=== PATIENT | male | born 1975 | race Caucasian/White ===

== ENCOUNTER 2017-03-31 17:47 | Emergency (ER) | payer OTHER ==
[2017-03-31 17:59] VITALS: BP 110/73; PULSE 95; RESP 18; TEMP 98.7
--- NOTE | 2017-03-31 18:17 | ED ---
ENT HPI - General Chief complaint: ENT Stated complaint: left facial swelling Time Seen by Provider: 03/31/17 18:00 Source: patient Mode of arrival: ambulatory Limitations: no limitations - History of Present Illness Initial comments: 32-year-old male patient presents to emergency department today for complaints of left sided facial pain and nasal drainage. Patient states that symptoms started on Thursday. Patient states that the pain feels like a pressure, is there constantly, and seems to be worsening. Patient states that he is having thick yellow drainage from his nose that has a foul odor. Patient denies any fevers, but states he has had chills on and off throughout the day today. Denies any cough, or congestion. States he does have a mild sore throat. Patient denies any headaches, dizziness, weakness, chest pain, shortness of breath, nausea, vomiting, or other concerns. - Related Data Previous Rx's Medication Instructions Recorded Amoxicillin/Potassium Clav 1 tab PO Q12HR #20 tab 03/31/17 [Augmentin 875-125 Tablet] Allergies Allergy/AdvReac Type Severity Reaction Status Date / Time No Known Allergies Allergy Verified 03/31/17 17:58 Review of Systems ROS Statement: Those systems with pertinent positive or pertinent negative responses have been documented in the HPI. ROS Other: All systems not noted in ROS Statement are negative. Past Medical History Past Medical History: No Reported History History of Any Multi-Drug Resistant Organisms: MRSA Date of last positivie culture/infection: 2014 MDRO Source:: feet/groin Past Surgical History: No Surgical Hx Reported Past Psychological History: No Psychological Hx Reported Smoking Status: Current every day smoker Past Alcohol Use History: None Reported Past Drug Use History: None Reported General Exam Limitations: no limitations General appearance: alert, in no apparent distress Head exam: Present: atraumatic, normocephalic, normal inspection Eye exam: Present: normal appearance, PERRL, EOMI. Absent: scleral icterus, conjunctival injection, periorbital swelling ENT exam: Present: normal exam, normal oropharynx, TM's normal bilaterally, other (Bilateral maxillary tenderness) Neck exam: Present: normal inspection. Absent: tenderness, meningismus, lymphadenopathy Respiratory exam: Present: normal lung sounds bilaterally. Absent: respiratory distress, wheezes, rales, rhonchi, stridor Cardiovascular Exam: Present: regular rate, normal rhythm, normal heart sounds. Absent: systolic murmur, diastolic murmur, rubs, gallop, clicks GI/Abdominal exam: Present: soft, normal bowel sounds. Absent: distended, tenderness, guarding, rebound, rigid Extremities exam: Present: normal inspection, full ROM, normal capillary refill. Absent: tenderness, pedal edema, joint swelling, calf tenderness Neurological exam: Present: alert, oriented X3, CN II-XII intact Psychiatric exam: Present: normal affect, normal mood Skin exam: Present: warm, dry, intact, normal color. Absent: rash Course Vital Signs 03/31/17 17:55 Temperature 98.7 F Pulse Rate 95 Respiratory 18 Rate Blood Pressure 110/73 O2 Sat by Pulse 100 Oximetry Medical Decision Making - Medical Decision Making 32-year-old male patient presented to emergency department stay for complete left-sided facial pain, and yellow nasal drainage. Patient's exam did reveal left maxillary tenderness. Patient's symptoms are consistent with acute sinusitis. Patient discharged home with prescription for Augmentin. Patient instructed to follow up with his primary care physician one to 2 days for recheck as instructed to return for any new, worsening, or concerning symptoms. Patient verbalizes understanding and agrees this plan. Disposition Clinical Impression: Sinusitis Disposition: HOME SELF-CARE Condition: Good Instructions: Sinusitis (ED) Additional Instructions: Utilize [id number] nasal decongestants. Increase fluid intake. Complete antibiotic prescription in full. Follow-up with primary care physician in one to 2 days for recheck. Return for any new, worsening, or concerning symptoms. Prescriptions: Amoxicillin/Potassium Clav [Augmentin 875-125 Tablet] 1 tab PO Q12HR #20 tab Referrals: None,Stated [Primary Care Provider] - 1-2 days Time of Disposition: 18:17
== END 2017-03-31 18:21 | disposition home or self-care (01) ==
LOC: EC 17:47
DX: J32.9 Chronic sinusitis, unspecified (principal); F17.200 Nicotine dependence, unspecified, uncomplicated
CPT/HCPCS: 99283